=== PATIENT | female | born 2000 | race Caucasian/White ===

== ENCOUNTER 2023-10-11 16:42 | Emergency (ER) | payer OTHER, SELFPAY ==
[2023-10-11 16:54] VITALS: BP 112/73; PULSE 80; RESP 16; TEMP 36.8; O2SAT 100
--- NOTE | 2023-10-11 17:25 | ED.URI ---
HPI - URI/Sore Throat General Chief Complaint: Upper Respiratory Infection Stated Complaint: SORE THROAT/STREP EXPOSURE Time Seen by Provider: 10/11/23 17:25 Source: patient, RN notes reviewed and old records reviewed Mode of arrival: ambulatory Limitations: no limitations History of Present Illness HPI Narrative: 22 year old female presents to [facility] care with complaints of sore throat, nasal congestion and fatigue for the past 2 days with sore throat starting last night. Patient reports that she has been taking some DayQuil and NyQuil for her symptoms. Patient has had positive strep exposure from friend. Patient reports that she has mot had any fevers, chills or sweat or body aches. She states that she did home COVID test which was negative,. MD elicited complaint: cough and sore throat Onset (ago): day(s) (2) Pain scale (0-10): 3 Able to tolerate fluids by mouth: Yes Treatments prior to arrival: cold medicine Related Data Home Medications Medication Instructions Recorded Confirmed No Home Medications 10/11/23 10/11/23 Allergies Allergy/AdvReac Type Severity Reaction Status Date / Time No Known Allergies Allergy Verified 10/11/23 20:01 Review of Systems Review of Systems: CONSTITUTIONAL: Denies malaise, chills, sweats, or fever.reports fatigue EYES: Denies visual changes, redness, or discharge. ENT: Reports rhinorrhea, congestion, sinus pain,no otalgia and positive for sore throat. CARDIOVASCULAR: Denies chest pain, palpitations, or edema. RESPIRATORY: Reports no acute cough.? Denies dyspnea. GASTROINTESTINAL: Denies abdominal pain, nausea, vomiting, diarrhea SKIN: Denies rash or itching. MUSCULOSKELETAL: Denies myalgia. NEUROLOGIC: Denies headache. All systems reviewed & are unremarkable except as noted in HPI and below PMFSH Social History Social History (Updated 10/13/23 @ 09:46 by Anel Priest NP) Smoking status: Never smoker Alcohol intake: current Alcohol use details: social Substance use type: does not use Living arrangements: with family Gender identity (if verbalized by the patient): Female Comments At time of signature, agree with nursing past medical, surgical, social and family history. There is no relevant family history pertinent to the presenting complaint Exam Narrative: GENERAL: Well-appearing, well-nourished, and in no acute distress. HEAD: Normocephalic EYES: PERRLA, conjunctivae clear ENT: Nares clear, turbinates edematous and erythematous, clear discharge. Mucous membranes moist. TM pearly reyes with dull light reflex bilaterally; no tragal tenderness. Oropharynx erythematous without lesions. Tonsils not enlarged and without exudate, no drooling, no hoarseness, no trismus, uvula midline.post nasal drainage noted NECK: Supple. No lymphadenopathy CHEST: Clear to auscultation, breath sounds equal. No wheezing, rhonchi, rales, or stridor. No respiratory distress, speaks in full sentences.SAO2 100% on room air HEART: Regular rate and rhythm. No murmur heard. SKIN: Warm, dry, no rash. NEURO: Alert and oriented x3. PSYCH: Normal mood and affect Course Course Emergency Course: Patient is aware of diagnosis, understands and agrees to treatment plan.? Anticipatory guidance given.? Patient agrees to follow-up as directed and is aware of reasons to seek care at the emergency department. Portions of this record may have been created with voice recognition software Level of Care: Express Care Visit Vital Signs Vital signs: Vital Signs Temperature 36.8 C 10/11/23 16:54 Pulse Rate 80 10/11/23 16:54 Respiratory Rate 16 10/11/23 16:54 Blood Pressure 112/73 10/11/23 16:54 Pulse Oximetry 100 10/11/23 16:54 Temperature 36.8 C 10/11/23 16:54 Pulse Rate 80 10/11/23 16:54 Respiratory Rate 16 10/11/23 16:54 Blood Pressure 112/73 10/11/23 16:54 Pulse Oximetry 100 10/11/23 16:54 Reviewed [facility]
== END 2023-10-11 17:36 | disposition home or self-care (01) ==
PROVIDERS: Emergency Provider Registered Nurse; PCP Family Medicine
DX: J06.9 Acute upper respiratory infection, unspecified (principal); J02.9 Acute pharyngitis, unspecified
CPT/HCPCS: 87081; 87880; 99213; G0463